=== PATIENT | female | born 1980 | race Caucasian/White ===

== ENCOUNTER 2017-12-24 15:04 | Emergency (ER) | payer OTHER ==
[~2017-12-24] VITALS: Ht 165.1 cm; Wt 130.2 kg
[~2017-12-24 15:04] MED LIST: ACET-5634 PO; CEFD300C3 PO; CODE118S2 PO; LISI10TA11 PO; MONT10TA35 PO; PRED20TA5 PO
[2017-12-24 15:40] VITALS: BP 197/110
[2017-12-24 16:30] VITALS: BP 195/105
== END 2017-12-24 16:29 | disposition home or self-care (01) ==
LOC: MED 15:04
DX: M62.830 Muscle spasm of back (principal); I10 Essential (primary) hypertension; G43.909 Migraine, unspecified, not intractable, without status migrainosus
CPT/HCPCS: 99283

== ENCOUNTER 2018-10-21 20:35 | Emergency (ER) | payer OTHER ==
[~2018-10-21] VITALS: Ht 165.1 cm; Wt 127.0 kg
[2018-10-21 20:38] VITALS: BP_SYST 175; BP_SYST 179; BP_DIAS 106; BP_DIAS 109
--- NOTE | 2018-10-21 20:38 | NUR ---
TO BED # 9 AMBULATORY, REPORT GIVEN TO NORBERT VELAZQUEZ
--- NOTE | 2018-10-21 21:00 | NUR ---
PT PRESENTS TO ED FOR EVALUATION OF DIZZINESS. STATED DIZZINESS STARTED SINCE SATURDAY. AAO X4, GCS 15, ABLE TO SPEAK WITH FULL COMPLETE SENTENCES. AMBULATORY WITH STDEAY GAIT. RESPIRATIONS EVEN AND UNLABORED, BL LUNG CLEAR. SKIN WARM/PINK/DRY, +PMSC. ABDOMEN SOFT, NON DISTENDED, ACTIVE BOWEL SOUND X4. PLACED ON GLOVE PAIRER SR, BP ELEVATED. STATED MILD HEADACHE. DR. AMARO MADE AWARE OF PT STATUS. WILL CONTINUE TO MONITOR
--- NOTE | 2018-10-21 22:22 | NUR ---
Patient discharged with v/s stable. Written and verbal after care instructions given and explained. Patient alert, oriented and verbalized understanding of instructions. Ambulatory with steady gait. All questions addressed prior to discharge. ID band removed. Patient advised to follow up with PMD. Rx of AUGMENTIN 875 MG, ANTIVERT 25 MG, NORVASC 10 MG, OMEPRAZOLE 10 MG, HCTZ 25 MG given. Patient educated on indication of medication including possible reaction and side effects. Opportunity to ask questions provided and answered.
[2018-10-21 22:25] VITALS: BP 170/99
== END 2018-10-21 22:22 | disposition home or self-care (01) ==
LOC: MED 20:35
DX: R42 Dizziness and giddiness (principal); H66.92 Otitis media, unspecified, left ear; I10 Essential (primary) hypertension; Z79.2 Long term (current) use of antibiotics; Z79.899 Other long term (current) drug therapy
CPT/HCPCS: 99283

== ENCOUNTER 2020-05-26 21:10 | Emergency (ER) | payer OTHER ==
[~2020-05-26] VITALS: Ht 165.1 cm; Wt 113.4 kg
[2020-05-26 21:25] VITALS: BP 194/113
--- NOTE | 2020-05-26 21:29 | NUR ---
PT AMBULATED TO BED 12 WITH STEADY GAIT
--- NOTE | 2020-05-26 21:45 | NUR ---
ADMITTED THE PT IN ER BED 12. PT VERBALIZED THAT SHE WAS SENT TO ER BY HER PMD FOR HIGH BLOOD PRESSURE. PT STATED THAT SHE DIDN'T TAKE HER BP FOR 2 MONTHS NOW AND STATED SHE WAS TAKING LISINOPRIL 10 MG PO DAILY.PLACED PT ON DEEP TISSUE MASSAGE THERAPIST AND PULSE OX. CURRENT BP IS 177/108, HR-71, SATING 98% ON RA. PT ALSO VERBALIZED THAT SHE'S BEEN HAVING OFF AND ON HEADACHE, LEFT SIDE OF THE ARM TINGLING AND NUMBNESS AND OCCASIONAL CHEST PAIN. OTHERWISE NO OTHER COMPLAIN AT THIS TIME. PT A/A/OX4, AMBULATORY. NKDA HX: HLD AND HTN HOME MEDS: LISINOPRIL AND CHOLESTEROL PILL ( PT DOESN'T REMEMBER THE NAME)
--- NOTE | 2020-05-26 21:48 | NUR ---
LABS AND EKG AT THE BEDSIDE.
[2020-05-26 22:00] LABS: BASOPHILS % (AUTO) 0.3 % (0.0-2.0); EOSINOPHILS # (AUTO) 0.2 K/uL (0-0.4); EOSINOPHILS % (AUTO) 1.4 % (0.0-4.0); HEMATOCRIT 42.6 % (36-48); HEMOGLOBIN 14.3 g/dL (12.0-16.0); LYMPHOCYTES # (AUTO) 2.9 K/uL (2.5-16.5); LYMPHOCYTES % (AUTO) 26.3 % (20.5-51.1); MEAN CORPUSCULAR HEMOGLOBIN 30 pg (27-31); MEAN CORPUSCULAR HGB CONC 34 g/dL (33-37); MEAN CORPUSCULAR VOLUME 88.4 fL (80-94); MONOCYTES # (AUTO) 0.5 K/uL (0.8-1.0); MONOCYTES % (AUTO) 4.5 % (1.7-9.3); NEUTROPHILS # (AUTO) 7.4 K/uL (1.8-7.7); NEUTROPHILS % (AUTO) 67.5 % (42.2-75.2); PLATELET COUNT (AUTO) 292 K/uL (140-450); RED BLOOD CELL COUNT(AUTO) 4.82 MIL/uL (4.20-5.40); RED CELL DISTRIBUTION WIDTH 13.7 % (11.6-13.7)
--- NOTE | 2020-05-26 22:00 | NUR ---
RAD AT THE BEDSIDE
[2020-05-26 22:18] LABS: ALBUMIN 3.7 g/dL (3.4-5.0); ANION GAP 15.1 (8-16); CARBON DIOXIDE 23.3 mmol/L (21-32); CREATININE 0.9 mg/dL (0.6-1.3); POTASSIUM 3.4 mmol/L (3.5-5.1); TOTAL BILIRUBIN 0.3 mg/dL (0.0-1.0)
[2020-05-26 22:26] LABS: CREATINE KINASE MB 0.5 ng/mL (0-3.6)
[2020-05-26 22:50] VITALS: BP 154/104
--- NOTE | 2020-05-26 22:50 | NUR ---
Patient discharged with v/s stable. Written and verbal after care instructions given and explained. Patient alert, oriented and verbalized understanding of instructions. Ambulatory with steady gait. All questions addressed prior to discharge. ID band removed. Patient advised to follow up with PMD. Rx of NORVASC given. Patient educated on indication of medication including possible reaction and side effects. Opportunity to ask questions provided and answered.
== END 2020-05-26 22:50 | disposition home or self-care (01) ==
LOC: MED 21:10
DX: I10 Essential (primary) hypertension (principal); Z79.899 Other long term (current) drug therapy
CPT/HCPCS: 36415; 71045; 80053; 82550; 82553; 83880; 84484; 85025; 93005; 99285; Q0092

== ENCOUNTER 2021-05-02 03:27 | Emergency (ER) | payer OTHER ==
[~2021-05-02] VITALS: Ht 165.1 cm; Wt 95.3 kg
[~2021-05-02 03:27] MED LIST changes: +LISI-486 PO; -LISI10TA11 PO
--- NOTE | 2021-05-02 03:45 | NUR ---
TO [facility] AMBULATORY
[2021-05-02] MEDS ORDERED: HYDROXYZINE HYDROCHLORIDE 25 MG TAB PO STA (04:26)
[2021-05-02] MEDS ORDERED: PRED50TA2 PO (04:29)
[2021-05-02] MEDS ORDERED: ATA25 PO (04:29)
--- NOTE | 2021-05-02 04:30 | NUR ---
Seen by ERMD no nursing interventions needed for patient.
[2021-05-02 04:58] VITALS: BP 163/108
--- NOTE | 2021-05-02 04:58 | NUR ---
Patient discharged with v/s stable. Written and verbal after care instructions given and explained. Patient alert, oriented and verbalized understanding of instructions. Ambulatory with steady gait. All questions addressed prior to discharge. ID band removed. Patient advised to follow up with PMD. Rx of Atarax HCL and prednisone given. Patient educated on indication of medication including possible reaction and side effects. Opportunity to ask questions provided and answered.
== END 2021-05-02 04:58 | disposition home or self-care (01) ==
LOC: MED 03:27
DX: L50.9 Urticaria, unspecified (principal); I10 Essential (primary) hypertension; F17.200 Nicotine dependence, unspecified, uncomplicated; Z79.899 Other long term (current) drug therapy
CPT/HCPCS: 99283

== ENCOUNTER 2022-11-15 15:22 | Emergency (ER) | payer OTHER ==
[~2022-11-15] VITALS: Ht 161 cm; Wt 126.6 kg
[~2022-11-15 15:22] MED LIST changes: +ATA25 PO; +PRED50TA2 PO
[2022-11-15 15:30] VITALS: BP 168/92
--- NOTE | 2022-11-15 15:46 | NUR ---
EKG AT TRIAGE ROOM.
[2022-11-15] MEDS ORDERED: KETOROLAC 30 MG/ML VIAL IM ONE (16:15)
--- NOTE | 2022-11-15 16:30 | NUR ---
PT AMBULATED TO ER BED 3
[2022-11-15 16:46] LABS: BASOPHILS # (AUTO) 0.1 K/uL (0.00-0.22); BASOPHILS % (AUTO) 0.4 % (0.0-2.0); EOSINOPHILS # (AUTO) 0.1 K/uL (0-0.4); EOSINOPHILS % (AUTO) 0.9 % (0.0-4.0); HEMATOCRIT 42.1 % (36-48); LYMPHOCYTES # (AUTO) 2.2 K/uL (2.5-16.5); LYMPHOCYTES % (AUTO) 18.8 % (20.5-51.1); MEAN CORPUSCULAR HEMOGLOBIN 30 pg (27-31); MEAN CORPUSCULAR HGB CONC 33 g/dL (33-37); MEAN CORPUSCULAR VOLUME 88.5 fL (80-94); MONOCYTES # (AUTO) 0.7 K/uL (0.8-1.0); NEUTROPHILS # (AUTO) 8.8 K/uL (1.8-7.7); NEUTROPHILS % (AUTO) 73.9 % (42.2-75.2); PLATELET COUNT (AUTO) 336 K/uL (140-450); RED BLOOD CELL COUNT(AUTO) 4.76 MIL/uL (4.20-5.40); RED CELL DISTRIBUTION WIDTH 14.3 % (11.6-13.7); WHITE BLOOD COUNT (AUTO) 11.9 K/uL (4.8-10.8)
[2022-11-15 17:06] LABS: ALBUMIN 3.9 g/dL (3.4-5.0); ANION GAP 14.7 (8-16); CARBON DIOXIDE 25.2 mmol/L (21-32); CREATININE 0.8 mg/dL (0.6-1.3); POTASSIUM 3.9 mmol/L (3.5-5.1); TOTAL BILIRUBIN 0.2 mg/dL (0.0-1.0)
[2022-11-15] MEDS ORDERED: CYCL-711 PO (17:22)
[2022-11-15] MEDS ORDERED: LISI-486 PO (17:22)
[2022-11-15] MEDS ORDERED: NAPR-54 PO (17:22)
--- NOTE | 2022-11-15 17:32 | NUR ---
Patient discharged with v/s stable. Written and verbal after care instructions given and explained. Patient alert, oriented and verbalized understanding of instructions. Ambulatory with steady gait. All questions addressed prior to discharge. ID band removed. Patient advised to follow up with PMD. Rx of FLEXERIL, NAPROXEN given. Patient educated on indication of medication including possible reaction and side effects. Opportunity to ask questions provided and answered.
== END 2022-11-15 17:32 | disposition home or self-care (01) ==
LOC: MED 15:22
DX: R07.9 Chest pain, unspecified (principal); R05.9 Cough, unspecified; I10 Essential (primary) hypertension; F17.200 Nicotine dependence, unspecified, uncomplicated
CPT/HCPCS: 36415; 71045; 80053; 81025; 83880; 84484; 85025; 93005; 96372; 99285; J1885; Q0092